=== PATIENT | male | born 1960 | race Caucasian/White ===

== ENCOUNTER 2024-11-15 07:36 | Day surgery (SDC) | payer BC ==
[2024-11-11 15:57] LABS: Urine Bacteria None Seen /hpf (None Seen); Urine WBC None Seen /hpf (0 - 3)
[2024-11-11 16:22] LABS: Basophils # (auto) 0.1 10 ^3/uL (0-0.2); Basophils % (auto) 0.9 % (0.0-2.0); Eosinophils # (auto) 0.3 10 ^3/uL (0-0.8); Eosinophils % (auto) 3.2 % (0.0-7.0); Hematocrit 41.4 % (41.0-53.0); Hemoglobin 13.9 g/dL (13.5-17.5); Lymphocytes # (auto) 2.2 10 ^3/uL (0.4-5.4); Lymphocytes % (auto) 27.5 % (10.0-50.0); Mean Corpuscular Hemoglobin 28.9 pg (28.0-32.0); Mean Corpuscular Hgb Conc. 33.5 g/dL (32.0-36.0); Mean Corpuscular Volume 86.2 fL (80.0-100.0); Monocytes # (auto) 0.8 10 ^3/uL (0-1.3); Monocytes % (auto) 9.8 % (0.0-12.0); Neutrophils # (auto) 4.6 10 ^3/uL (1.6-8.6); Neutrophils % (auto) 58.6 % (37.0-80.0); Nucleated Red Blood Cells % 0.1 %; Platelet Count (auto) 241 10^3/uL (140-450); Red Cell Distribution Width 15.9 % (11.8-14.3); White Blood Cell 7.9 10^3/uL (4.4-10.8)
[2024-11-11 16:43] LABS: Alanine Aminotransferase 24 U/L (7-40); Albumin 4.4 g/dL (3.2-4.8); Alkaline Phosphatase 52 U/L (46-116); Anion Gap 5 (5-15); Aspartate Aminotransferase 15 U/L (13-40); BUN/Creatinine Ratio 15.2 (10.0-20.0); Blood Urea Nitrogen 14 mg/dL (9-23); Calcium 9.8 mg/dL (8.7-10.4); Carbon Dioxide 28 mmol/L (20-31); Chloride 107 mmol/L (98-107); Potassium 3.8 mmol/L (3.5-5.1); Sodium 140 mmol/L (136-145); Urine Blood Negative /uL (Negative); Urine Clarity Clear (Clear); Urine Color Light-Yellow (Yellow); Urine Mucus FEW (None Seen); Urine Protein, UAD Negative (Negative); Urine Specific Gravity 1.015 (1.001-1.035); Urine Squamous Epithelial Cell None Seen /hpf (<5); Urine Urobilinogen Normal (Negative)
[2024-11-11 16:44] LABS: Bilirubin, Total 0.6 mg/dL (0.2-1.0)
[2024-11-11 16:50] LABS: Glucose 136 mg/dL (74-106)
[2024-11-11 17:54] LABS: INR 1.05 (0.9-1.15); Partial Thromboplastin Time 27.3 SEC (24.5-34.5); Prothrombin Time 11.1 sec (9.3-11.8)
[~2024-11-15] VITALS: Ht 188 cm; Wt 108.9 kg
[~2024-11-15 07:36] MED LIST: ATOR10TA PO; BLAC1CAP11 PO; CLOP75TA28 PO; METF-370 PO
[2024-11-15] MEDS ORDERED: ceFAZolin 2 GM/D5W100ml 100 ML IV ONE (09:14)
[2024-11-15] MEDS ORDERED: BUPIVACAINE HCL 0.25% P/F 10 ML VIAL ONE (11:03)
[2024-11-15] MEDS ORDERED: ONDANSETRON HCL 4 MG/2 ML VIAL ONE (11:29)
[2024-11-15] MEDS ORDERED: LIDOCAINE 2% (LOCAL ANESTH.) PF 5ml SDV ONE (11:29)
[2024-11-15] MEDS ORDERED: DexAMETHasone SOD PHOS 10MG/1ML VIAL INJ ONE (11:29)
[2024-11-15] MEDS ORDERED: KETOROLAC TROMETH 30 MG/ML 1ML VIAL ONE (11:29)
[2024-11-15] MEDS ORDERED: PROPOFOL 10 MG/ML 20 ML IV ONE ×3 (11:29→12:48)
[2024-11-15] MEDS ORDERED: GLYCOPYRROLATE 0.2 MG/ML 1ML VIAL ONE (11:29)
[2024-11-15] MEDS: ACETAMINOPHEN IV 1000 MG/100ML (10MG/ML) IV ONE (12:10)
[2024-11-15] MEDS: BUPIVACAINE HCL 0.25% P/F 10 ML VIAL ONE (12:49)
[2024-11-15] MEDS: LIDOCAINE 1% HCL (LOCAL ANESTH.) INJ 20ML MDV ONE (12:49)
[2024-11-15 13:02] VITALS: TEMP 98.7; O2SAT 95
[2024-11-15] MEDS ORDERED: NALOXONE HCL 0.4 MG/ML VIAL IV PRN (13:15)
[2024-11-15] MEDS ORDERED: ePHEDrine SULFATE 50 MG/ML AMP IV PRN (13:15)
[2024-11-15] MEDS ORDERED: HYDROmorphone HCL 2 MG/ML VL/or syr IV PRN (13:15)
[2024-11-15] MEDS ORDERED: fentaNYL CITRATE 100 MCG/2 ML VL IV PRN (13:15)
[2024-11-15] MEDS ORDERED: oxyCODONE HCL 5MG TAB PO PRN (13:15)
[2024-11-15] MEDS ORDERED: hydrALAZINE HCL 20 MG/ML VL IV PRN (13:15)
[2024-11-15] MEDS ORDERED: FLUMAZENIL 0.1 MG/ML INJ 10ML MDV IV PRN (13:15)
[2024-11-15] MEDS ORDERED: ONDANSETRON HCL 4 MG/2 ML VIAL IV PRN (13:15)
[2024-11-15] MEDS: CELECOXIB 100 MG CAP PO ONE (13:23)
[2024-11-15] MEDS: GABAPENTIN 300 MG CAP PO ONE (13:23)
[2024-11-15 13:30] VITALS: BP 125/65; PULSE 65; RESP 12; O2SAT 93
--- NOTE | 2024-11-17 16:45 | DVHOP2 ---
Operative Report - 2 Report Details Date: 11/15/24 Preop Diagnosis: Displaced right ring finger proximal phalanx fracture Postop Diagnosis: As above Surgeon: Jhonny Aparicio MD Roofing Applicator: Eduardo RUBY Anesthesiologist: David REYES Anesthesia: General Implant: K-wire x 2 Consent: The patient was informed of the risks and benefits of the procedure. These include but are not limited to complications of anesthesia, postoperative infection, incomplete relief of symptoms, recurrence of symptoms, damage to blood vessels, nerves and tendons, deep venous thrombosis, pulmonary embolism and possible need for repeat surgery in the future. Estimated Blood Loss: 1 cc Name of Procedure Performed Open reduction internal fixation of right ring finger of proximal phalanx Procedure Details Procedure Details: CLINICAL SUMMARY: Risks/benefits/options/alternatives were discussed at length with patient and his parents Nonoperative versus operative management was presented to her. Risks include but not exclusive to bleeding, infection, nerve injury, tendon or ligament damage, hardware failure, nonunion, malunion, need for further surgery, amputation, DVT, and . Patient and family understood these risks and wished to proceed with surgery. OPERATION: The patient was brought from the health care marketing manager unit and placed on the operating table in a supine position and administered general anesthetic. Tourniquet was placed around the right upper extremity. Once adequate anesthesia had been obtained, the right upper extremity was prepped and draped in the usual sterile manner. A time out was performed. The upper extremity was then elevated and exsanguinated using an Esmarch dressing. The tourniquet was elevated to 250 mmHg. At this time under fluoro guidance, fracture was reduced to acceptable angulation using a freer and small incision to reduce and pinned with k-wire x 2. AP and lat fluoro demonstrated alignment to be in correctable angulation that will heal over time. A large bulky dressing was then applied with a volar short- arm splint maintaining the wrist in neutral position. The tourniquet was let down. The fingers were immediately pink. The patient was awakened and taken to the recovery room in good condition. There were no operative complications. The patient tolerated the procedure well. Condition Good Disposition Home JHONNY APARICIO MD Nov 17, 2024 16:45
== END 2024-11-15 13:42 | disposition home or self-care (01) ==
LOC: SUR 07:36
PROVIDERS: ATTEND Orthopaedic Surgery Adult Reconstructive Orthopaedic Surgery
DX: S62.614A Displaced fracture of proximal phalanx of right ring finger, initial encounter for closed fracture (principal); X58.XXXA Exposure to other specified factors, initial encounter; Y93.89 Activity, other specified; Y92.89 Other specified places as the place of occurrence of the external cause; Y99.8 Other external cause status; E11.9 Type 2 diabetes mellitus without complications; E66.9 Obesity, unspecified; Z68.30 Body mass index [BMI] 30.0-30.9, adult; Z86.73 Personal history of transient ischemic attack (TIA), and cerebral infarction without residual deficits; Z98.890 Other specified postprocedural states
CPT/HCPCS: 26735; 36415; 80053; 81001; 82962; 85025; 85610; 85730; C1713; J1100; J1885; J2003; J2405; J2704; J3490; J0131